=== PATIENT | female | born 1935 | race Caucasian/White ===

== ENCOUNTER 2019-05-27 17:15 | Emergency (ER) | payer OTHER ==
[~2019-05-27] VITALS: Ht 154.9 cm; Wt 55.8 kg
[2019-05-27] MEDS ORDERED: CIPRO500 MG PO (20:47)
== END 2019-05-27 21:36 | disposition home or self-care (01) ==
LOC: EDBD 17:15 → ER 17:15 → EDBD 17:28 → ER 17:28
DX: S60.571A Other superficial bite of hand of right hand, initial encounter (principal); W54.0XXA Bitten by dog, initial encounter; Y93.89 Activity, other specified; Y92.89 Other specified places as the place of occurrence of the external cause; Y99.8 Other external cause status